=== PATIENT | female | born 1990 | race Hispanic/Latino ===

== ENCOUNTER 2021-09-23 11:11 | Emergency (ER) | payer MEDICARE ==
[2021-09-23] MEDS ORDERED: SODIUM CHLORIDE 0.9% 1000 ML 1,000 ML IV ONE (12:03)
[2021-09-23 13:04] LABS: Basophils % (Auto) 0.5 % (0.0-1.8); Eosinophils % (Auto) 0.5 % (0.0-4.3); Hematocrit 41.7 % (30.3-42.9); Hemoglobin 14.4 gm/dl (10.1-14.3); Lymphocytes # (Auto) 1.3 K/mm3 (1.2-5.4); Lymphocytes % (Auto) 17.2 % (13.4-35.0); Mean Corpuscular HGB Conc 35 % (30-34); Mean Corpuscular Volume 82 fl (79-97); Monocytes # (Auto) 0.4 K/mm3 (0.0-0.8); Monocytes % (Auto) 5.1 % (0.0-7.3); Platelet Count 318 K/mm3 (140-440); Red Blood Count 5.08 M/mm3 (3.65-5.03); Red Cell Distribution Width 13.8 % (13.2-15.2)
[2021-09-23 13:11] LABS: INR 0.84 (0.87-1.13)
[2021-09-23 13:22] LABS: Blood Urea Nitrogen 9 mg/dL (7-17); Calcium 9.5 mg/dL (8.4-10.2); Hemolysis Index 0
--- NOTE | 2021-09-23 13:23 | Emergency Department Report ---
ED Syncope HPI - General Chief Complaint: Syncope Stated Complaint: SYNCOPE Time Seen by Provider: 09/23/21 11:23 Source: patient Exam Limitations: no limitations - History of Present Illness Initial Comments: 31-year-old female who was born a biological male presents to the hospital with complaints of syncopal episode at the doctor's office. Patient recently had a new PCP. Today she was at the doctor's office to review her recent lab results. Patient was asymptomatic but then complained of feeling dizzy, stood up to have blood pressure check, then had a syncopal episode with some residual dizziness. After syncopal episode the office had difficulty obtaining a blood pressure. Patient presents to the hospital feeling better with only mild residual lightheadedness and mild headache. He denies nausea, vomiting, fever, abdominal pain, chest pain, shortness of breath, calf tenderness or leg edema. Patient has had a previous orchiectomy and discontinued estrogen and progesterone hormone replacement therapy 1 year ago. He states discontinuing hormonal therapy he has had intermittent syncopal episodes for the past year. Patient's current medical history includes depression, PTSD, bipolar, and dissociative identity disorder - Related Data Allergies/Adverse Reactions: Allergies Penicillins Adverse Reaction (Verified 09/23/21 11:19) Unknown ED Review of Systems ROS: Stated complaint: SYNCOPE Other details as noted in HPI Comment: All other systems reviewed and negative ED Physical Exam - General Limitations: No Limitations - Other Other exam information: General: No acute distress Head: Atraumatic Eyes: normal appearance ENT: Moist mucous membranes Neck: Normal appearance, no midline tenderness Chest: Clear to auscultation bilaterally CV: Regular rate and rhythm Abdomen: Soft, normal bowel sounds, nontender, nondistended, no rebound or guarding Back: Normal inspection Extremity: Normal inspection, full range of motion Neuro: Alert O x 3, no facial asymmetry, speech clear, no gross motor sensory deficit, finger nose finger Psych: Appropriate behavior Skin: No rash ED Course Vital Signs 09/23/21 09/23/21 09/23/21 11:17 11:46 11:49 Temperature 97.4 F L 98.6 F Pulse Rate 86 88 Respiratory 18 18 18 Rate Blood Pressure 128/86 138/78 [Left] O2 Sat by Pulse 98 99 99 Oximetry - Reevaluation(s) Reevaluation #1: 09/23/21 13:54 I was informed by staff the multiple peripheral IV at that they were unable to obtain peripheral IV access. I offered placement of external jugular vein placement which patient denies. He states that he typically have a difficult time obtaining obtaining IV access. Patient states he is feeling much better and is no longer dizzy. He was offered oral hydration was excepted as an alter ekuk to his repeated IV attempts. ED Medical Decision Making - Lab Data Result diagrams: 09/23/21 12:19 09/23/21 12:19 Lab Results 09/23/21 09/23/21 09/23/21 Range/Units 12:19 12:19 12:19 WBC 7.7 (4.5-11.0) K/mm3 RBC 5.08 H (3.65-5.03) M/mm3 Hgb 14.4 H (10.1-14.3) gm/dl Hct 41.7 (30.3-42.9) % MCV 82 (79-97) fl MCH 28 (28-32) pg MCHC 35 H (30-34) % RDW 13.8 (13.2-15.2) % Plt Count 318 (140-440) K/mm3 Lymph % (Auto) 17.2 (13.4-35.0) % [place] % (Auto) 5.1 (0.0-7.3) % Eos % (Auto) 0.5 (0.0-4.3) % Baso % (Auto) 0.5 (0.0-1.8) % Lymph # (Auto) 1.3 (1.2-5.4) K/mm3 [place] # (Auto) 0.4 (0.0-0.8) K/mm3 Eos # (Auto) 0.0 (0.0-0.4) K/mm3 Baso # (Auto) 0.0 (0.0-0.1) K/mm3 Seg Neutrophils % 76.7 H (40.0-70.0) % Seg Neutrophils # 5.9 (1.8-7.7) K/mm3 PT 12.6 (12.2-14.9) Sec. INR 0.84 L (0.87-1.13) Sodium 139 (137-145) mmol/L Potassium 4.1 (3.6-5.0) mmol/L Chloride 102.5 (98-107) mmol/L Carbon Dioxide 25 (22-30) mmol/L Anion Gap 16 mmol/L BUN 9 (7-17) mg/dL Creatinine 0.7 (0.6-1.2) mg/dL Estimated GFR > 60 ml/min BUN/Creatinine Ratio 13 % Glucose 107 H (65-100) mg/dL Calcium 9.5 (8.4-10.2) mg/dL - EKG Data -: EKG Interpreted by Me EKG shows normal: sinus rhythm, ST-T waves (no stemi) Rate: normal - Medical Decision Making 31-year-old biologic male who currently identifies as female presents to the hospital with complaints of syncopal episode at the doctor's office while standing. Patient has significant heart rate increase with standing suggestive of dehydration. Nurses were unable to obtain peripheral IV access and patient refused additional attempts and EJ placement. He did hydrate orally and reported feeling better even prior to hydration. Labs and EKG unremarkable. Patient will be discharged to follow-up with his doctor and cardiology as outpatient Critical Care Time: No Critical care attestation.: If time is entered above; I have spent that time in minutes in the direct care of this critically ill patient, excluding procedure time. ED Disposition Clinical Impression: Syncope Disposition: 01 HOME / SELF CARE / HOMELESS Is pt being admited?: No Does the pt Need Aspirin: No Condition: Stable Instructions: Syncope, Syncope (ED) Additional Instructions: Follow-up with your doctor or doctor/clinic provided. Return if symptoms worsen as indicated by your discharge instructions. Referrals: AKIRA CAZARES MD [Primary Care Provider] - 3-5 Days NATALI CHOWDARY MD [Staff Physician] - 3-5 Days Time of Disposition: 14:04
[2021-09-23 13:27] LABS: BUN/Creatinine Ratio 13
[2021-09-23 15:12] VITALS: BP 130/78
--- NOTE | 2021-09-24 11:09 | Electrocardiograph Report ---
[facility] Test Date: 2021-09-23 Test Time: 11:41:36 Pat Name: ANGELIA BRENNAN Department: Room: Gender: F Design Specialist: ADRIANO : 1990 Requested By: ANGELINA WYMAN Order Number: [id number] Reading MD: Nomi Simms Measurements Intervals [place] Rate: 71 P: 20 MO: 180 QRS: 15 QRSD: 92 T: 30 QT: 388 QTc: 421 Interpretive Statements Sinus rhythm No previous ECG available for comparison Electronically Signed On 09-24-2021 11:08:45 EDT by Nomi Simms
== END 2021-09-23 15:39 | disposition home or self-care (01) ==
LOC: ED 11:11
DX: R55 Syncope and collapse (principal)
CPT/HCPCS: 36415; 80048; 85025; 85610; 93005; 99284